=== PATIENT | female | born 1990 | race Two or more races ===

== ENCOUNTER 2019-01-03 17:56 | Emergency (ER) | payer MEDICAID ==
[2019-01-03] MEDS ORDERED: LIDOCAINE 2% VISCOUS 15 ML UDCUP ONE (18:22)
[2019-01-03] MEDS ORDERED: LIDOCAINE 2% VISCOUS 15 ML UDCUP MISC ONE (18:50)
[2019-01-03] MEDS ORDERED: IBUPROFEN 600 MG TAB PO ONE (18:51)
[2019-01-03] MEDS ORDERED: AMOXICILLIN 250 MG PREPACK#4 BTL TAKEHOME ONE (19:10)
[2019-01-03] MEDS ORDERED: NEOMY SULF/POLYMYX B SULF/HC 10ML OTIC SOLUTION LEFTEAR ONE (19:12)
--- NOTE | 2019-01-03 19:16 | EDPHY ---
H & P Time Seen by Provider: 01/03/19 18:15 HPI/ROS: CHIEF COMPLAINT: Left ear pain History by patient HISTORY OF PRESENT ILLNESS: 28-year-old woman presents complaining of acute onset of left ear pain which began last night. Patient states that she had some URI symptoms but then the left ear pain began been severe. She does clean her ears with Q-tips. She denies any foreign body. REVIEW OF SYSTEMS: As in HPI, and all other systems reviewed and are negative Smoking Status: Current every day smoker Physical Exam: General Appearance: Alert and no distress. Head: normocephalic, atraumatic, no sinus tenderness Eyes: Pupils equal and round no injection. Extraocular movements intact Ears: TM right TM with normal external canal and TM clear with normal landmarks , left TM positive erythema with minimal exudate of the external canal with red , scarred, bulging TM and black fibrous foreign body in the canal OP: mucus membranes moist, no tonsillar enlargement, no exudates Neck: no meningismus, no cervical nodes, no submandibular nodes Musculoskeletal: Neck is supple and nontender. Extremities have full range of motion and are nontender. Skin: No rashes or lesions. Constitutional: Initial Vital Signs Temperature (C) 37.1 C 01/03/19 18:03 Heart Rate 112 H 01/03/19 18:03 Respiratory Rate 18 01/03/19 18:03 Blood Pressure 129/86 H 01/03/19 18:03 O2 Sat (%) 99 01/03/19 18:03 O2 Delivery Mode Room Air Allergies/Adverse Reactions: No Known Allergies Allergy (Unverified 01/03/19 18:02) Home Medications: Medication Instructions Recorded Amoxicillin Trihydrate [Amoxil] 500 mg PO BID #20 cap 01/03/19 Neomy Sulf/Polymyx B Sulf/Hc 4 drops OT TID #1 otic.btl 01/03/19 [Cortisporin Otic Suspension] MDM/Departure - MDM Medications Given: Discontinued Medications Amoxicillin (Amoxil Chewable 250 Mg Prepack#4) 1 btl TAKEHOME EDNOW ONE PRN Reason: Protocol Stop: 01/03/19 19:11 Last Admin: 01/03/19 19:33 Dose: 1 btl Ibuprofen (Motrin) 600 mg PO EDNOW ONE Stop: 01/03/19 18:52 Last Admin: 01/03/19 18:56 Dose: 600 mg Lidocaine (Lidocaine 2% Viscous) 5 ml MISC EDNOW ONE Stop: 01/03/19 18:51 Last Admin: 01/03/19 19:08 Dose: 5 ml Neomycin/Polymyxin/Hydrocortisone (Cortisporin Otic Solution) 3 drops LEFTEAR EDNOW ONE Stop: 01/03/19 19:13 Last Admin: 01/03/19 19:36 Dose: 4 drop ED Course/Re-evaluation: 28-year-old woman presents with left ear pain and possible fibrous foreign body in the ear. She is given ibuprofen for her ear pain. Exam is suggestive of both otitis externa and otitis in her neck. 2% viscous lidocaine was placed in the ear with minimal relief. This was then suctioned out and rate exam this black fibrous for a body was gone. Patient will be treated for both otitis media and otitis externa given her exam. We discussed symptomatic home care. - Depart Disposition: Home, Routine, Self-Care Clinical Impression: Acute otitis media Qualifiers: Otitis media type: unspecified Qualified Code(s): H66.90 - Otitis media, unspecified, unspecified ear Otitis externa Qualifiers: Otitis externa type: unspecified type Chronicity: acute Laterality: left Qualified Code(s): H60.502 - Unspecified acute noninfective otitis externa, left ear Condition: Good Instructions: Amoxicillin (By mouth), Neomycin/Polymyxin B/Hydrocortisone ( Into the ear), Otitis Externa (ED), Ear Infection (ED) Additional Instructions: You were seen by Dr. Milady Pozo today. Please take antibiotics and use ear drops as prescribed. I recommend taking probiotics in between doses of antibiotics to prevent antibiotic associated diarrhea. You may take ibuprofen 600 mg 4 times a day and Tylenol 1000 mg every 6 hr as needed for pain. Please to not swim or some urged her head under water until this is resolved. Return for any worsening or new concerns. Prescriptions: Amoxicillin Trihydrate [Amoxil] 500 mg PO BID #20 cap Neomy Sulf/Polymyx B Sulf/Hc [Cortisporin Otic Suspension] 4 drops OT TID #1 otic.btl Referrals: NONE *PRIMARY CARE P,. [Primary Care Provider] - As per Instructions
[2019-01-03 19:28] VITALS: BP 124/87
== END 2019-01-03 19:20 | disposition home or self-care (01) ==
LOC: CED 17:56
DX: H60.502 Unspecified acute noninfective otitis externa, left ear (principal)
CPT/HCPCS: 99283-ER